=== PATIENT | female | born 1970 | race Native Hawaiian/Other Pacific Islander ===

== ENCOUNTER 2024-10-16 09:26 | Outpatient (AMB) | payer OTHER, SELFPAY ==
--- NOTE | 2024-10-16 09:34 | A.OFFVIS_ITS ---
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 Said she has right knee swelling since. Told her primary care doctor who referred patient to [facility]. Accompanied by: Self / Same As Patient Allergies clindamycin Allergy (Unknown, Verified 10/16/24 09:38) unknown lidocaine Allergy (Unknown, Verified 10/16/24 09:38) Blisters propylene glycol Allergy (Unknown, Verified 10/16/24 09:38) Blisters HPI HPI MARKETING PROGRAMS SPECIALIST Lower Extremity swelling: Details: Anusha, a pleasant 54-year-old female patient, is presenting today on a referral for right more than left swelling with feelings of hot liquid going down her leg. She also continues with numbness around her right knee area. Complaints include discomfort, swelling of lower extremities, and a feeling warm liquid going down her leg. It has been affecting their daily activities including walking, standing, and physical activity. It is noted more so in right leg. She has not gone back to [facility] for a follow up; her PCP sent her here on a referral. Patient states approximately 1-2 years ago she had vein stripping in bilateral lower extremities at [facility]. Patient denies any history of DVT/ PE. Patient denies any history of phlebitis. Trial of compression includes - she has not tried elevation or compression stockings yet They now present for vascular evaluation regarding their varicose veins. Review of Systems Const Reports as per HPI and Denies weakness ENT Reports Normal hearing present and Denies dizziness Card Reports as per HPI, Denies chest pain, Denies chest pain at rest, Denies chest pain with activity, Denies dyspnea and Denies dyspnea on exertion Resp Reports as per HPI, Denies cough, Denies dyspnea and Denies dyspnea on exertion GI Reports as per HPI, Denies abdominal pain, Denies nausea and Denies vomiting Musc Denies numbness Skin/Breast Reports as per HPI, Denies erythema and Denies wounds Neuro Reports Normal hearing present, Denies dizziness, Denies numbness, Denies Sensory deficit (Neuro) and Denies weakness Psych Reports no additional complaints Endo Reports no additional complaints Physical Exam Const General: healthy appearing and no acute distress Orientation/consciousness: patient oriented x3 HEENT Head: Yes normal to inspection Ears: hearing grossly normal bilaterally Mouth: Normal oral and palatal mucosa present Resp Effort & Inspection: normal respiratory effort and able to speak in complete sentences Auscultation: clear to auscultation bilaterally Cardio Jugular venous distension: no JVD Rate: regular rate Rhythm: regular rhythm Heart sounds: S1 normal heart sound present and S2 normal heart sound present Bruits: no abdominal aortic bruits, no carotid bruits, no femoral bruits and no renal bruits Peripheral pulses: Peripheral pulses 2+ throughout GI Inspection: Yes normal to inspection Palpation (GI): No Abdominal aortic bruit present Skin General skin exam: no rashes or lesions noted Wounds: no wounds Hair: normal Neuro General: patient oriented x3 Cranial nerves: Yes Normal hearing present Cognition (Neuro): normal cognition Gait exam (Neuro): Normal gait present Motor exam (neuro): 5/5 motor strength present throughout Sensory Exam: No Sensory deficit (Neuro) Extrem Other: Right lower extremity: Pain to palpation on the lateral aspect of the knee and just [id number]. No discoloration noted. Trace peripheral edema noted. Palpable DP pulses. Left lower extremity: Trace peripheral edema noted. CEAP: C - 3 E - primary A - superficial P - reflux General: Yes normal to inspection, Yes full ROM, Yes capillary refill normal and Yes normal gait Assessment & Plan Assessment & Plan (1) Varicose veins of right lower extremity with inflammation: Code(s): I83.11 - Varicose veins of right lower extremity with inflammation Category: Medical Plan: Anusha is presenting today on a referral for right greater than left lower extremity swelling with a feeling of warm liquid going down her right lower extremity from her knee to the lateral aspect of her calf. She states this has been going on since her procedures to have veins stripping done approximately 1- 2 years ago. In short, the patient has evidence of venous insufficiency. I have discussed the pathophysiology with the patient. In addition I have provided informational material regarding venous disease to the patient. We have discussed conservative measures including compression, elevation, and exercise. I have taken the liberty of ordering venous insufficiency testing with the patient. They will follow up with me after testing. The patient had an opportunity to ask questions regarding the treatment plan. All questions were answered. Imaging studies, laboratory studies and physical exam results were discussed and reviewed in detail. No major barriers to understanding were identified. The patient expressed understanding and agreement with the above treatment plan. The patient is aware they should contact our office by phone for worsening of the current condition or the appearance of new symptoms. Thank you for allowing me to participate in the vascular care of this patient. If you have any questions or concerns regarding the treatment for the above condition please do not hesitate to contact me. The office telephone contact is [phone]. This note is constructed using voice recognition software. While every effort has been made to ensure accuracy, communication equipment repairer errors may have been included. Thank you for allowing me to participate in the care of your patient. Yours sincerely, MARLEN Mcmanus Orders: Orders US venous duplex LE 1 Week I83.11 - Varicose veins of right lower extremity with inflammation Coding Level of Care Code New Pt Level 4 (77595) Diagnoses Varicose veins of right lower extremity with inflammation I83.11
== END 2024-10-16 09:59 | disposition home or self-care (01) ==
PROVIDERS: PCP Internal Medicine; Visit Provider Physician Assistant Surgical
DX: I83.11 Varicose veins of right lower extremity with inflammation (principal)
CPT/HCPCS: 99204

== ENCOUNTER → 2024-10-16 09:26 | Outpatient (BNVA) | payer OTHER, SELFPAY | PROVIDERS: PCP Internal Medicine; Visit Provider Physician Assistant Surgical ==

== ENCOUNTER 2024-11-22 13:04 | Outpatient (REF) | payer OTHER, SELFPAY ==
--- NOTE | ~2024-11-22 | US_ITS ---
EXAMINATION: US LOWER EXTREMITY VENOUS (REFLUX EXAM), BILATERAL CLINICAL INFORMATION: Varices. COMPARISON: None. TECHNIQUE: Color flow triplex imaging and compression Doppler was performed to evaluate both the deep and the superficial systems bilaterally. To evaluate the superficial system, the examination was performed in the upright position. Color-flow Doppler ultrasound and compression ultrasound were utilized. In addition, maneuvers were utilized to demonstrate reflux. FINDINGS: 1. DEEP VENOUS ULTRASOUND OF THE RIGHT LOWER EXTREMITY: Common Femoral Vein: Compressible, normal respiratory variation and augmented flow. Femoral Vein: Compressible, normal color flow and augmentation. Popliteal Vein: Compressible, normal augmentation. Deep Reflux: There is no evidence of reflux in the deep system in either the common femoral vein, superficial femoral or the popliteal vein. There is no evidence of a Li's cyst. 2. SUPERFICIAL ULTRASOUND WITH DOPPLER OF RIGHT LOWER EXTREMITY: GREAT SAPHENOUS VEIN: Saphenofemoral Junction: 0.4 cm; Reflux: 0 ms Proximal Thigh: Not seen. Mid Thigh: Not seen. Distal Thigh: Not seen. At Knee: 0.3 cm; Reflux: More than 2576 ms Proximal Calf: 0.3 cm; Reflux: More than 2840 ms Mid Calf: 0.2 cm; Reflux: 0 ms Distal Calf: 0.2 cm; Reflux: No more than 1816 ms DUPLICATED MEDIAL GREAT SAPHENOUS VEIN: Diameter: None imaged Reflux: NA DUPLICATED LATERAL GREAT SAPHENOUS VEIN: Diameter: 0.3 cm. Reflux: NA SMALL SAPHENOUS VEIN: Saphenopopliteal Junction: 0.2 cm; Reflux: 0 ms Proximal: 0.1 cm; Reflux: 0 ms Distal: 0.2 cm; Reflux: 0 ms VEIN OF GIACOMINI: Size: 0.2 cm. Reflux: NA PERFORATORS: Location: Small saphenous vein mid segment. Great saphenous vein mid segment and mid calf. Size: 0.2 cm. Reflux: NA VARICOSITIES: Location: Distal thigh. Size: 0.3 cm. Reflux: NA 3. DEEP VENOUS ULTRASOUND OF THE LEFT LOWER EXTREMITY: Common Femoral Vein: Compressible, normal respiratory variation and augmented flow. Femoral Vein: Compressible, normal color flow and augmentation. Popliteal Vein: Compressible, normal augmentation. Deep Reflux: There is no evidence of reflux in the deep system in either the common femoral vein, superficial femoral or the popliteal vein. There is no evidence of a Li's cyst. 4. SUPERFICIAL ULTRASOUND WITH DOPPLER OF LEFT LOWER EXTREMITY: GREAT SAPHENOUS VEIN: Saphenofemoral Junction: Not seen. Proximal Thigh: 0.3 cm; Reflux: No more than 3220 ms Mid Thigh: 0.3 cm; Reflux: No more than 2824 ms Distal Thigh: 0.2 cm; Reflux: 1536 ms At Knee: 0.2 cm; Reflux: 1940 ms Proximal Calf: 0.1 cm; Reflux: 0 ms Mid Calf: 0.1 cm; Reflux: 0 ms Distal Calf: 0.1 cm; Reflux: 0 ms DUPLICATED MEDIAL GREAT SAPHENOUS VEIN: Diameter: None imaged Reflux: NA DUPLICATED LATERAL GREAT SAPHENOUS VEIN: Diameter: 0.2 cm. Reflux: NA SMALL SAPHENOUS VEIN: Saphenopopliteal Junction: 0.1 cm; Reflux: 0 ms Proximal: 0.2 cm; Reflux: 0 ms Distal: 0.1 cm; Reflux: 0 ms VEIN OF GIACOMINI: Size: NA Reflux: NA PERFORATORS: Location: Mid thigh and proximal calf. Size: 0.2 cm. Reflux: NA VARICOSITIES: Location: Proximal thigh and calf and lateral mid thigh. Size: 0.3 cm. Reflux: No more than 2920 ms in the proximal calf and 936 ms in the proximal thigh and 964 ms in the mid thigh. US/US venous duplex LE BI IMPRESSION: Right: Venous insufficiency, great saphenous vein from the knee to the ankle. Varices and perforators without reflux. Left: Venous insufficiency, great saphenous vein from the proximal thigh to the knee. Varices with the reflux in the proximal and mid thigh and proximal calf. Electronically signed by: Jono Laguna MD 11/23/2024 10:38 AM EDT
== END 2024-11-22 13:05 | disposition home or self-care (01) ==
LOC: HO.US 13:04
PROVIDERS: PCP Internal Medicine; Visit Provider Physician Assistant Surgical
DX: I83.11 Varicose veins of right lower extremity with inflammation (principal)
CPT/HCPCS: 93970

== ENCOUNTER → 2024-11-22 13:05 | Outpatient (BNV) | payer OTHER, SELFPAY | PROVIDERS: PCP Internal Medicine; Visit Provider Radiology Diagnostic Radiology | DX: I86.8 Varicose veins of other specified sites (principal) | CPT/HCPCS: 93970 ==

== ENCOUNTER 2024-12-11 15:10 | Outpatient (AMB) | payer OTHER, SELFPAY ==
--- NOTE | 2024-12-11 15:16 | A.OFFVIS_ITS ---
Intake Visit Reasons: follow up s/p US 11/22/24 Intake Note: Follow up US. Patient has no complaints. Accompanied by: Self / Same As Patient Allergies clindamycin Allergy (Unknown, Verified 12/11/24 15:17) unknown lidocaine Allergy (Unknown, Verified 12/11/24 15:17) Blisters propylene glycol Allergy (Unknown, Verified 12/11/24 15:17) Blisters [facility] follow up s/p US 11/22/24: Details: The patient is a 54-year-old female presenting with peripheral venous insufficiency. Two years prior, she received bilateral treatment at [facility] for this condition, yet continues to experience numbness and swelling, primarily in the left leg. She describes sensations of internal fluid movement and visible vein distension, particularly pronounced in the thigh. She now presents for follow-up with venous insufficiency testing.. Review of Systems Const Reports as per HPI ENT Reports no additional complaints Card Denies chest pain, Denies chest pain at rest and Denies chest pain with activity Resp Denies chest congestion and Denies cough GI Reports no additional complaints Musc Details: pain over varicosities, aching of lower extremities, swelling, cramping, heaviness and tiredness, itching Denies abnormal gait Skin/Breast Reports pruritus and Denies wounds Neuro Reports no additional complaints and Denies abnormal gait Psych Denies no additional complaints Physical Exam Const General: cooperative, healthy appearing and comfortable Orientation/consciousness: oriented to person, oriented to place and oriented to time Neck Carotids: no bruits Chest Chest palpation & inspection: normal inspection of the chest and normal palpation of entire chest wall Resp Effort & Inspection: normal respiratory effort and able to speak in complete sentences Cardio Rate: regular rate Heart sounds: S1 normal heart sound present and S2 normal heart sound present Peripheral pulses: Peripheral pulses 2+ throughout GI Inspection: Yes normal to inspection Skin Other: +2 edema, large rope-like varicosities greater than 4 mm CEAP Classification C4 - skin color changes Ep - Etiology Primary As - superficial veins P - reflux General skin exam: dry skin Neuro General: oriented to person, oriented to place and oriented to time Extrem Right lower extremity: full ROM, normal capillary refill and edema Left lower extremity: full ROM, normal capillary refill and edema Psych Mental Status: mental status grossly normal Results Reviewed Results Reviewed: Brief summary of venous insufficiency testing is as follows: right great saphenous vein: Positive right calf right small saphenous vein: negative right accessory vein: none present left great saphenous vein: Positive left small saphenous vein: negative left accessory vein: none present Please note there is no evidence of any venous aneurysms or significant tortuosity Assessment & Plan Assessment & Plan (1) Varicose veins of left lower extremity with inflammation: Code(s): I83.12 - Varicose veins of left lower extremity with inflammation Category: Medical Plan: This patient has varicose veins with inflammation. They continue to be a source of discomfort for the patient. The patient has tried conservative treatment with compression, leg elevation and exercise program for over 3 months time. They have been compliant with all treatment. This has provided minimal relief for the patient. I do not anticipate this course of treatment will alter the underlying etiology. The patient has been scheduled for lower extremity venous treatment inclusive of --- left great saphenous vein Cyanoacralate ablation. Risks, benefits, and complications of this procedure has been discussed in detail with the patient including but not limited to bleeding, infection, and the development of a DVT. The patient has demonstrated a clear understanding and has consented. We will schedule the patient as soon as possible. Thank you for allowing us to participate in this patient's care. If there are any questions or concerns please do not hesitate to contact us. Coding Level of Care Code Est Pt Level 4 (93604) Complex EM visit Add On G2211 Diagnoses Varicose veins of left lower extremity with inflammation I83.12
== END 2024-12-11 15:38 | disposition home or self-care (01) ==
LOC: HO.HVS 15:11
PROVIDERS: PCP Internal Medicine; Visit Provider Surgery Vascular Surgery
DX: I83.12 Varicose veins of left lower extremity with inflammation (principal)
CPT/HCPCS: 99214

== ENCOUNTER 2024-12-28 09:11 | Outpatient (AMB) | payer OTHER, SELFPAY ==
--- NOTE | 2024-12-28 10:30 | A.OFFVIS_ITS ---
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 Novak Internal Communications Writer: MARLEN Mcmanus Estimated Blood Loss: min Specimen: none Duplex ultrasound was used to map out the insufficient saphenous vein, and access was determined and marked on the overlying skin. The depth and diameter of the vein(s) to be treated was documented. The patient was placed supine on the procedure table and the leg was prepped and draped using sterile technique. Ultasound guidance was again used to localize the access site. 1% lidocaine was injected as a local anesthetic in the subcutaneous tissues at the target location in the GSV in the lower leg. Using ultrasound guidance, access was gained at this location with the 19 gauge thin walled access needle and followed by introduction of a short guidewire, location confirmed with ultrasound. A small, 3 mm incision was made at the access site to allow for introduction and placement of the 7 Fr x7cm introducer/dilator. The dilator and guidewire were removed. The 0.035 guidewire from the VenaSeal kit was then introduced and positioned at the saphenofemoral junction using ultrasound guidance. The 80 cm 7 Fr introducer sheath/dilator was positioned 5cm from the saphenofemoral junction. The guidewire and dilator were removed, and the remaining sheath was flushed with sterile saline, with the syringe remaining in place prior to the next steps. The cyanoacrylate adhesive was precisely primed into the 5 F delivery catheter and this catheter/syringe combination was attached within the dispenser gun. This assembly was introduced through the 7F sheath and positioned 5 cm caudal of the saphenofemoral junction under ultrasound guidance. The steps from the IFU were followed for dispensing amounts, locations and compression times, 2 aliquots proximally with 3 minutes of compression, and 1 aliquot every 3 cm distally with 30 sec of compression along the course of the vessel. Following the last injection and compression sequence, the catheter and introducer sheath were pulled out from the access site. Hemostasis was achieved with manual compression and an adhesive bandage was applied to the incision. Ultrasound confirmed complete coaptation and closure of the treated segments of the GSV, and the absence of any DVT at the saphenofemoral junction. Treatment time was approximately 5 minutes and the vein length treated was 15 cm. The drapes were removed and the patient cleaned and prepared for discharge. Post op ultrasound check is scheduled for 48-72 hours and the patient was given written post-op instructions. 35579 - Endoven Ther Chem Adhes 1st All charges added?: Procedure code (CPT) selection complete Assessment & Plan Assessment & Plan (1) Varicose veins of left lower extremity with inflammation: Comment: 12/28/2024 - left great saphenous vein Cyanoacralate ablation Code(s): I83.12 - Varicose veins of left lower extremity with inflammation Category: Medical Plan: See op note Coding Level of Care Code Complex EM visit Add On G2211 Diagnoses Varicose veins of left lower extremity with inflammation I83.12 CPT Codes Details - Vascular 3: 19545 - Endoven Ther Chem Adhes 1st ([id number])
== END 2024-12-28 10:33 | disposition home or self-care (01) ==
LOC: HO.HVS 09:11
PROVIDERS: PCP Internal Medicine; Visit Provider Surgery Vascular Surgery
DX: I83.12 Varicose veins of left lower extremity with inflammation (principal)
CPT/HCPCS: 36482

== ENCOUNTER → 2024-12-28 09:11 | Outpatient (BNVA) | payer OTHER, SELFPAY | PROVIDERS: PCP Internal Medicine; Visit Provider Surgery Vascular Surgery | DX: I83.12 Varicose veins of left lower extremity with inflammation (principal) | CPT/HCPCS: 36482; J1200 ==

== ENCOUNTER 2025-01-10 15:07 | Outpatient (AMB) | payer OTHER, SELFPAY ==
--- NOTE | 2025-01-10 15:14 | MHC.OFFVIS ---
Intake Visit Reasons: 2 week follow up Left GSV Venaseal 12/28/2024 Intake Note: Patient presents for follow up left gsv rfa. Patient believes she may have an infection on one of her incisions as it is red. Has been putting neosporin on it. Patient states she feels sharp pains on her left leg. Accompanied by: Child Allergies clindamycin Allergy (Unknown, Verified 01/10/25 15:18) unknown lidocaine Allergy (Unknown, Verified 01/10/25 15:18) Blisters propylene glycol Allergy (Unknown, Verified 01/10/25 15:18) Blisters HPI HPI 2 week follow up Left GSV Venaseal 12/28/2024: Details: 54-year-old female presents for follow-up status post left great saphenous vein ablation. She reports she was doing fairly well after the procedure. Overall pain and discomfort have improved. She does have some mild swelling over the left lower extremity along with some prominent varicosities which are of concern to her. She does report some right lateral leg numbness from venous procedures done at an outside institution. She is now for routine postprocedure follow-up. Review of Systems Const Reports as per HPI ENT Reports no additional complaints Card Denies chest pain, Denies chest pain at rest and Denies chest pain with activity Resp Denies chest congestion and Denies cough GI Reports no additional complaints Musc Details: pain over varicosities, aching of lower extremities, swelling, cramping, heaviness and tiredness, itching Denies abnormal gait Skin/Breast Reports pruritus and Denies wounds Neuro Reports no additional complaints and Denies abnormal gait Psych Denies no additional complaints Physical Exam Const General: cooperative, healthy appearing and comfortable Orientation/consciousness: oriented to person, oriented to place and oriented to time Neck Carotids: no bruits Chest Chest palpation & inspection: normal inspection of the chest and normal palpation of entire chest wall Resp Effort & Inspection: normal respiratory effort and able to speak in complete sentences Cardio Rate: regular rate Heart sounds: S1 normal heart sound present and S2 normal heart sound present Peripheral pulses: Peripheral pulses 2+ throughout GI Inspection: Yes normal to inspection Skin Other: +2 edema, large rope-like varicosities greater than 4 mm CEAP Classification C4 - skin color changes Ep - Etiology Primary As - superficial veins P - reflux General skin exam: dry skin Neuro General: oriented to person, oriented to place and oriented to time Extrem Right lower extremity: full ROM, normal capillary refill and edema Left lower extremity: full ROM, normal capillary refill and edema Psych Mental Status: mental status grossly normal Assessment & Plan Assessment & Plan (1) Varicose veins of left lower extremity with inflammation: Comment: 12/28/2024 - left great saphenous vein Cyanoacralate ablation Code(s): I83.12 - Varicose veins of left lower extremity with inflammation Category: Medical Plan: In short patient has done well with her left great saphenous vein ablation. She does have some superficial varicosities throughout the calf. At the current time we would like to manage this conservatively. We did discuss compression elevation and exercise. We will see her back in approximately 3 months to see if she sees any significant improvement. If not at that time we may consider microphlebectomy. Thank you for allowing us to assist in her care. If there are any questions or concerns please do not hesitate to contact us. Coding Level of Care Code Est Pt Level 4 (60528) Diagnoses Varicose veins of left lower extremity with inflammation I83.12
== END 2025-01-10 15:43 | disposition home or self-care (01) ==
LOC: HO.HVS 15:08
PROVIDERS: PCP Internal Medicine; Visit Provider Surgery Vascular Surgery
DX: I83.12 Varicose veins of left lower extremity with inflammation (principal)
CPT/HCPCS: 99214

== ENCOUNTER → 2025-01-10 15:07 | Outpatient (BNVA) | payer OTHER, SELFPAY | PROVIDERS: PCP Internal Medicine; Visit Provider Surgery Vascular Surgery ==

== ENCOUNTER 2025-04-11 11:05 | Outpatient (AMB) | payer OTHER, SELFPAY ==
--- NOTE | 2025-04-11 11:08 | MHC.OFFVIS ---
Intake Visit Reasons: 3 mo leg check Intake Note: 3 mo leg check s/p Left GSV Venaseal 12/28/24. Pt states she still has sebastian epain over treated area to touch. Also states she has pain over the VV on her calf and behind the knee. Brand Ambassador Promotional Model Required: No Accompanied by: Self / Same As Patient Allergies clindamycin Allergy (Unknown, Verified 04/11/25 11:12) unknown lidocaine Allergy (Unknown, Verified 04/11/25 11:12) Blisters propylene glycol Allergy (Unknown, Verified 04/11/25 11:12) Blisters HPI HPI 3 mo leg check: Details: Pleasant 54-year-old female presents for follow-up regarding left lower extremity varicose veins. She previously had a left great saphenous vein ablation on 12/28/2024. She has significant residual varicosities which have been a source of pain and discomfort for her. She has had a trial of conservative management including compression elevation and exercise which has provided minimal relief. She now presents for follow-up. Review of Systems Const Reports as per HPI ENT Reports no additional complaints Card Denies chest pain, Denies chest pain at rest and Denies chest pain with activity Resp Denies chest congestion and Denies cough GI Reports no additional complaints Musc Details: pain over varicosities, aching of lower extremities, swelling, cramping, heaviness and tiredness, itching Denies abnormal gait Skin/Breast Reports pruritus and Denies wounds Neuro Reports no additional complaints and Denies abnormal gait Psych Denies no additional complaints Physical Exam Const General: cooperative, healthy appearing and comfortable Orientation/consciousness: oriented to person, oriented to place and oriented to time Neck Carotids: no bruits Chest Chest palpation & inspection: normal inspection of the chest and normal palpation of entire chest wall Resp Effort & Inspection: normal respiratory effort and able to speak in complete sentences Cardio Rate: regular rate Heart sounds: S1 normal heart sound present and S2 normal heart sound present Peripheral pulses: Peripheral pulses 2+ throughout GI Inspection: Yes normal to inspection Skin Other: +2 edema, large rope-like varicosities greater than 4 mm left calf and thigh CEAP Classification C4 - skin color changes Ep - Etiology Primary As - superficial veins P - reflux General skin exam: dry skin Neuro General: oriented to person, oriented to place and oriented to time Extrem Right lower extremity: full ROM, normal capillary refill and edema Left lower extremity: full ROM, normal capillary refill and edema Psych Mental Status: mental status grossly normal Assessment & Plan Assessment & Plan (1) Varicose veins of left lower extremity with inflammation: Comment: 12/28/2024 - left great saphenous vein Cyanoacralate ablation Code(s): I83.12 - Varicose veins of left lower extremity with inflammation Category: Medical Plan: This patient has varicose veins with inflammation. They continue to be a source of discomfort for the patient. The patient has tried conservative treatment with compression, leg elevation and exercise program for over 3 months time. They have been compliant with all treatment. This has provided minimal relief for the patient. I do not anticipate this course of treatment will alter the underlying etiology. The patient has been scheduled for lower extremity venous treatment inclusive of --- left leg microphlebectomy. Risks, benefits, and complications of this procedure has been discussed in detail with the patient including but not limited to bleeding, infection, and the development of a DVT. The patient has demonstrated a clear understanding and has consented. We will schedule the patient as soon as possible. Thank you for allowing us to participate in this patient's care. If there are any questions or concerns please do not hesitate to contact us. Coding Level of Care Code Est Pt Level 4 (13080) Diagnoses Varicose veins of left lower extremity with inflammation I83.12
--- OUTSIDE RECORDS SUMMARY | 2025-04-11 12:43 | XMS_ITS | Continuity of Care Document ---
Author Organization [facility] Address [address] [place] [address] Phone [phone] Care Team Providers Care Multigraph Operator Name Role Phone Yoshi Kerr Care Team Information Receiv er [phone] Social History Type Date Description Comments Sex Female Sex Unknown Medical Devices Description No Information Available Encounters Description No Information Available Assessments Description No Information Available Plan of Treatment Future Appointment(s):* 04/26/2025 1:30 pm - Bailey Mitchell NP at Main Office Functional Status Description No Information Available Mental Status Description No Information Available Referrals Description No Information Available
== END 2025-04-11 11:27 | disposition home or self-care (01) ==
LOC: HO.HVS 11:06
PROVIDERS: PCP Internal Medicine; Visit Provider Surgery Vascular Surgery
DX: I83.12 Varicose veins of left lower extremity with inflammation (principal)
CPT/HCPCS: 99214

== ENCOUNTER 2025-05-03 08:30 | Outpatient (AMB) | payer OTHER, SELFPAY ==
--- OUTSIDE RECORDS SUMMARY | 2025-04-30 10:45 | XMS_ITS ---
Author Organization [facility] Address [address] [address] Care Team Providers Care Rn Acls Name Role Phone Cirilo, Yoshi Primary Care Provider Unavailab DANNY Tellez Unavailable [phone] Allergies Allergen (clinical drug ingredient) Drug/Non Drug [...] Active Encounters Encounter Location Date Provider Diagnosis [facility] [address] [address] 04/30/2025 DANNY SANDRA Plan Of Treatment Next Appt Details Provider Name:DANNY SANDRA, 07/08/2025 02:30:00 PM, [address] [address], [place], [address], Progress Notes * Anusha ROWLEYDOB:1970 ( 55 yo F)Acc No.[id number]:04/30/2025 Consult note Patient: Anusha AZUL Provider: Burt Byrnes DPM :1970 A ge:55 Y S ex:Female Date:04/30/2025 Phone: Address:[address] [place] [address] , [place], [id number] Pcp:Yoshi Kerr Subjective: * Chief Complaints: * [...] Electronic signature of LUIS SANDRA D.P.M. on 05/03/2025 at 09:00 AM EDT Sign off status: Pending * Provider: Burt Byrnes DPM Date: 04/30/2025 Generated for Alise acharya/Betsy/Becca on: 05/03/2025 09:00 AM EDT
--- OUTSIDE RECORDS SUMMARY | 2025-05-01 06:00 | XMS_ITS ---
Author Organization [facility] Address [address] [address] Care Team Providers Care Injection Molder Name Role Phone Yoshi Kerr Primary Care Provider Unavailab DANNY Tellez Unavailable [phone] Allergies Allergen (clinical drug ingredient) Drug/Non Drug Allergy documented on EMR Reaction Allergy Type Onset Date Status clindamycin Clindamycin HCl Unknown Drug Allergy Active lidocaine Lidocaine Unknown Drug Allergy Active propylene glycol Propylene Glycol Unknown Drug Allergy Active REASON FOR VISIT right foot pain Medications Medication SIG (Take, Route, Frequency, Duration) Notes Start Date End Date Status EpiPen 2-Sony 0.3 MG/0.3ML as directed Injection Not-Taking metFORMIN HCl 500 MG 1 tablet with a sher l Orally Once a day Active Albuterol Sulfate HFA 6.7GM Active Clotrimazole-Betamet hasone 1-0.05 % 1 application Externally Twice a day Active Rosuvastatin Calcium 10 MG 1 tablet Orally Once a day Active Ondansetron 4 MG 1 tablet on the tongue and allow to dissolve Orally Once a day Not-Taking Diclofenac Sodium 1 % 2 grams to right foot Externally twice a day; Duration: 30 days patient was advised that she can get over the counter. May need help finding 05/01/2025 Active Ozempic (1 MG/DOSE) 4 MG/3ML as directed Subcutaneous Active Vital Signs Temperature 96.8 degrees Fahrenheit 05/01/20 25 Heart Rate 86 /min 05/01/2025 Respiratory Rate 16 /min 05/01/2025 Height 5ft 2in in 05/01/2025 Weight 131.6 lbs 05/01/2025 BMI 24.07 kg/m2 05/01/2025 Encounters Encounter Location Date Provider Diagnosis [facility] [address] [address] 05/01/2025 DANNY SANDRA Metatarsalgia, right foot M77.41 ; Acquired hallux limitus of right foot M20.5X1 and DM type 2 with diabetic peripheral neuropathy E11.42 Assessments Encounter Date Diagnosis (ICD Code) Assessment Notes Treatment Notes Treatment Clinical Notes Section Notes 05/01/2025 Metatarsalgia, right foot (ICD-10 - M77.41) Patient examined and evaluated. Past medical history reviewed. She has chronic metatarsalgia on the right side. 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 There is likely correlation with her occupation and increase forefoot pressure with driving. No evidence of bunion deformity, but there is mild hallux limitus. I discussed that she has some inflammation of the plantar tissues due to the increase pressure to these areas. The fascia has some mild thickening distally and there is likely some nerve irritation as well. She would benefit from custom orthotics that would last longer for her. Will set this up today. I also discussed using topical Voltaren to the area twice daily for pain control and also icing. We discussed steroid injections, but advised that this will elevate her blood sugars transiently and is more invasive. She wished to proceed with the orthotics and the voltaren. She wished for a Rx for the voltaren, I did advise that she will likely need to get this OTC. I will see her back in 2 months or sooner if needed. 05/01/2025 Acquired hallux limitus of right foot (ICD-10 - M20.5X1) 05/01/2025 DM type 2 with diabetic peripheral neuropathy (ICD-10 - E11.42) Plan Of Treatment Medication Medication Name Sig Start Date Stop Date Notes Diclofenac Sodium 1 % 2 grams to right f oot Externally twice a day; Duration: 30 days 05/01/2025 patient was advised that she can get over the counter. May need help finding Treatment Notes Assessment Notes Metatarsalgia, right foot Patient examin ed and evaluated. Past medical history reviewed. She has chronic metatarsalgia on the right side. 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 There is likely correlation with her occupation and increase forefoot pressure with driving. No evidence of bunion deformity, but there is mild hallux limitus. I discussed that she has some inflammation of the plantar tissues due to the increase pressure to these areas. The fascia has some mild thickening distally and there is likely some nerve irritation as well. She would benefit from custom orthotics that would last longer for her. Will set this up today. I also discussed using topical Voltaren to the area twice daily for pain control and also icing. We discussed steroid injections, but advised that this will elevate her blood sugars transiently and is more invasive. She wished to proceed with the orthotics and the voltaren. She wished for a Rx for the voltaren, I did advise that she will likely need to get this OTC. I will see her back in 2 months or sooner if needed. Next Appt Details Follow Up: 2 Months, Reason: Provider Name:DANNY SANDRA, 07/08/2025 02:30:00 PM, [address], [address], Progress Notes * Anusha ROWLEYDOB:1970 ( 55 yo F)Acc No.[id number]:05/01/2025 Consult note Patient: Anusha AZUL Provider: Burt Byrnes DPM :1970 A ge:55 Y S ex:Female Date:05/01/2025 Phone: Address:[address] [place] [id number] Pcp:Yoshi Kerr Subjective: * Chief Complaints: * R ight foot pain * HPI: F oot & Ankle: Ms. Rowley is a pleasant 55 year old female who presents for a consultation. She has been having right foot pain for the last 10 years. The pain is in the ball of the foot. It bothers her with any direct pressure to this area. No pain at rest. She has never had any swelling or discoloration associated with the pain. She has been driving [employer] for the last 17 years. She describes the pain as sharp and burning. Occasional pain in the right 2nd and 3rd toes. She denies any weakness. She states she saw another specialist in the past who advised she would need bunion surgery and gave her an insert. She states the insert helped, but then flattened out. She did not go back. She has not done anything else on her own for it. She is a type 2 diabetic with last HgbaA1 of 7.6. * ROS: G eneral/Constitutional: Denies C hills. D enies F atigue. D enies F ever. D enies H eadache. A llergy/Immunology: Denies H dominic. D enies I tching. D enies R tamir. E ndocrine: Denies E xcessive sweating. D enies E xcessive thirst. D enies F requent urination. R espiratory: Denies C ough. D enies S hortness of breath, d enies. D enies W heezing. C ardiovascular: Denies C hest pain. D enies C laudication. D enies C yanosis. G astrointestinal: Denies A bdominal pain. D enies C onstipation. D enies D iarrhea. H ematology: Denies B leeding problems, d enies. D enies E asy bruising, d enies. D enies S wollen glands. M usculoskeletal: Patient complaining of p ain ball of right foot. D enies L eg cramps. D enies S ciatica. D enies S wollen joints. P eripheral Vascular: Denies B lanching of skin. B lood clots in legs D enies. D enies C old extremities. S kin: Denies M asses. D enies N ail changes. D enies?Skin lesion(s). N eurologic: Denies P aralysis. D enies T ingling/Numbness. D enies T remor. P sychiatric: Denies A uditory/visual hallucinations. D enies D elusions. D enies S uicidal thoughts. * Medical History: * Surgical History: C olonoscopy 2018Mammogram 01/18/2018Venous ligation -Bilateral * Hospitalization/Major Diagno stic Procedure: v aginal delivery (girl) 1985vaginal delivery (boy) 1987vaginal delivery (girl) 1990vaginal delivery (boy) 1992vaginal delivery (boy) 1999 * Family History: D aughter(s): 2 daughters- eczema. S on(s): 3 sons- asthma2 sons- heart murmur. M other: type II diabetes, hyperlipidemia, hypertension, heart murmur, arthritis, thyroid disease, Lupus. Maternal Grand Father: , diabetes. M aternal uncle: stomach cancer. M aternal aunt: breast cancer. S iblings: brother- diabetes. 3 son(s) , 2 daughter(s) . . * Social History: T obacco: no Alcohol: no Drives [employer]. * Medications: T akingRosuvastatin Calcium 10 MG Tablet 1 tablet Orally Once a day Ozempic (1 MG/DOSE) 4 MG/3ML Solution Pen-injector as directed Subcutaneous metFORMIN HCl 500 MG Tablet 1 tablet with a meal Orally Once a day Clotrimazole-Betamethasone 1-0.05 % Lotion 1 application Externally Twice a day Albuterol Sulfate HFA , Notes to Pharmacist: 6.7GMTaking Rosuvastatin Calcium 10 MG Tablet 1 tablet Orally Once a day Taking Ozempic (1 MG/DOSE) 4 MG/3ML Solution Pen-injector as directed Subcutaneous Taking metFORMIN HCl 500 MG Tablet 1 tablet with a meal Orally Once a day Taking Clotrimazole-Betamethasone 1-0.05 % Lotion 1 application Externally Twice a day Taking Albuterol Sulfate HFA , Notes to Pharmacist: 6.7GMNot-TakingOndansetron 4 MG Tablet Disintegrating 1 tablet on the tongue and allow to dissolve Orally Once a day EpiPen 2-Sony 0.3 MG/0.3ML Solution Auto-injector as directed Injection Medication List reviewed and reconciled with the patientNot-Taking Ondansetron 4 MG Tablet Disintegrating 1 tablet on the tongue and allow to dissolve Orally Once a day Not-Taking EpiPen 2-Sony 0.3 MG/0.3ML Solution Auto-injector as directed Injection Medication List reviewed and reconciled with the patient * Allergies: C lindamycin HClLidocainePropylene Glycolno[Allergies Verified] Objective: * Vitals: W t:131.6lbs, Ht: 5ft 2in, BMI:24.07Index, HR:86/min, Temp:96.8F, RR:16/min, Ht- cm: 157.48, Wt-k.69 kg. * Examination: G eneral Examination: T his is a middle aged female. Alert and oriented today and in no acute distress. Patient comes in ambulating in sneakers without using any assistive devices. Breathing is regular and unlabored while sitting. Affect is pleasant and cooperative. No unusual anxiety or depression noted. Hearing intact to spoken word. No evidence of visual impairment that would impact self care or ambulation. Patient has palpable dorsalis pedis and posterior tibial pulse bilaterally. No varicosities visualized. Capillary refill is less than 3 seconds to all digits bilaterally. Light touch sensation is symmetrical to all lower extremity dermatomes. Babinski is downgoing. Skin has normal turgor and texture. There are no open wounds, rashes, or lesions noted. No evidence of a right hallux valgus deformity. There is mild right hallux limitus with elevation of the first ray. There is tenderness around the plantar right 2nd interspace and just inferior to the right sesamoids. No edema or discoloration. There is mild thickening of the right plantar fascia at the insertion to the first metatarsal. No deformities to the lesser toes on the right. Negative tinel with percussion in the right tarsal tunnel. Gastrocnemius equinus on the right. Subtalar and ankle joint range of motion are unrestricted. 5/5 strength for anterior, posterior, and lateral lower extremity muscle groups on the left and right. Therapeutic Interventions: Assessment: * Assessment: 1. M etatarsalgia, right foot - M77.41 (Primary) 2 . A cquired hallux limitus of right foot - M20.5X1 3 . D M type 2 with diabetic peripheral neuropathy - E11.42 Plan: * Treatment: * Procedure Codes: * Follow Up: 2 Months * Billing Information: * Visit Code: 75395 Office Visit, New Pt., Level 3. * Procedure Codes: * Sign off status: Completed true * Provider: Burt Byrnes DPM Date: 0 05/01/2025 Generated for Alise acharya/Betsy/Kaylynitting on: 0 05/03/2025 09:00 AM EDT History and Physical Notes * Examination Category Sub-Category Detail Notes Category Not es General Examination This is a middle aged female. Alert and oriented today and in no acute distress. Patient comes in ambulating in sneakers without using any assistive devices. Breathing is regular and unlabored while sitting. Affect is pleasant and cooperative. No unusual anxiety or depression noted. Hearing intact to spoken word. No evidence of visual impairment that would impact self care or ambulation. Patient has palpable dorsalis pedis and posterior tibial pulse bilaterally. No varicosities visualized. Capillary refill is less than 3 seconds to all digits bilaterally. Light touch sensation is symmetrical to all lower extremity dermatomes. Babinski is downgoing. Skin has normal turgor and texture. There are no open wounds, rashes, or lesions noted. No evidence of a right hallux valgus deformity. There is mild right hallux limitus with elevation of the first ray. There is tenderness around the plantar right 2nd interspace and just inferior to the right sesamoids. No edema or discoloration. There is mild thickening of the right plantar fascia at the insertion to the first metatarsal. No deformities to the lesser toes on the right. Negative tinel with percussion in the right tarsal tunnel. Gastrocnemius equinus on the right. Subtalar and ankle joint range of motion are unrestricted. 5/5 strength for anterior, posterior, and lateral lower extremity muscle groups on the left and right.
--- NOTE | 2025-05-03 08:43 | A.OFFVIS_ITS ---
Intake Visit Reasons: Left Micro Allergies clindamycin Allergy (Unknown, Verified 04/11/25 11:12) unknown lidocaine Allergy (Unknown, Verified 04/11/25 11:12) Blisters propylene glycol Allergy (Unknown, Verified 04/11/25 11:12) Blisters Office Procedures Vascular Office Procedure Details Details: Diagnosis: Left Leg varicose veins with inflammation Procedure: Left leg Microphlebectomy Anesthesia: Local Infiltration 10 mL of 1% diphenhydramine Varicose veins were marked in the standing position on the left leg and the patient was then placed in the supine position. The left lower extremity was p repared and draped to allow knee flexion in the sterile field. The patient had large superficial varicose veins with significant symptoms of pain. It was therefore determined to perform microphlebectomies of the clusters of varicose veins. The patient had bulging varicose veins which were previously marked in the standing position. A small stab incision was made longitudinally directly overlying the varicose vein in the calf and the varicose vein was grasped with a hemostat aided by a vein hook. It was then dissected as far proximally and distally as possible and avulsed. A total of 11 stab incisions were made and the procedure of stab phlebectomies was repeated 11 times. Hemostasis was checked and stab incision sites were closed with steri-strips and sterile dressing was given with gauze and krilex wrap followed by an citlaly bandage. There were no complications and blood loss was minimal. Post-Op instructions were given and a follow-up appointment was recommended. [id number] - Phleb Veins, Extrem - up to 20 All charges added?: Procedure code (CPT) selection complete Assessment & Plan Assessment & Plan (1) Varicose veins of left lower extremity with inflammation: Comment: 12/28/2024 - left great saphenous vein Cyanoacralate ablation 05/03/2025 - left leg microphlebectomy Code(s): I83.12 - Varicose veins of left lower extremity with inflammation Category: Medical Plan: See op note Coding Level of Care Code Procedure Only Diagnoses Varicose veins of left lower extremity with inflammation I83.12 CPT Codes Details - Vascular 5: 87318 - Phleb Veins, Extrem - up to 20 ([id number])
--- OUTSIDE RECORDS SUMMARY | 2025-05-03 09:00 | XMS_ITS | Continuity of Care Document ---
Author Organization [facility] Address [address] [place] [address] Phone [phone] Care Team Providers Care Cattle Dipper Name Role Phone Yoshi Kerr Care Team Information Receiv er [phone] Social History Type Date Description Comments Sex Female Sex Unknown Medical Devices Description No Information Available Encounters Description No Information Available Assessments Description No Information Available Plan of Treatment No Information Available Functional Status Description No Information Available Mental Status Description No Information Available Referrals Description No Information Available
--- OUTSIDE RECORDS SUMMARY | 2025-05-03 09:00 | XMS_ITS | Patient Health Record ---
Author Organization [facility] Address [address] [address] Care Team Providers Care Plasterer Stucco Name Role Phone Yoshi Kerr Primary Care Provider Unavailab latricia CAMPUZANOEY DANNY Unavailable [phone] Allergies Allergen (clinical drug ingredient) Drug/Non Drug Allergy documented on EMR Reaction Allergy Type Onset Date Status clindamycin Clindamycin HCl Unknown Drug Allergy Active lidocaine Lidocaine Unknown Drug Allergy Active propylene glycol Propylene Glycol Unknown Drug Allergy Active Reason For Referral No Information Medications Medication SIG (Take, Route, Frequency, Duration) [...] MG/DOSE) 4 MG/3ML as directed Subcutaneous Active EpiPen 2-Sony 0.3 MG/0.3ML as directed Injection Not-Taking metFORMIN HCl 500 MG 1 tablet with a sher l Orally Once a day Active Albuterol Sulfate HFA 6.7GM Active Clotrimazole-Betamet hasone 1-0.05 % 1 application Externally Twice a day Active Rosuvastatin Calcium 10 MG 1 tablet Orally Once a day Active Vital Signs Heart Rate 86 /min 05/01/2025 Temperature 96.8 degrees Fahrenheit 05/01/2025 Respiratory Rate 16 /min 05/01/2025 Height 5ft 2in in 05/01/2025 Weight 131.6 lbs 05/01/2025 BMI 24.07 kg/m2 05/01/2025 Encounters Encounter Location Date Provider Diagnosis [facility] [address] [address] 05/01/2025 DANNY SANDRA Metatarsalgia, right foot M77.41 ; Acquired hallux limitus of right foot M20.5X1 and 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 Past medical history reviewed. She has chronic metatarsalgia on the right side. 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 [...] neuropathy (ICD-10 - E11.42) Plan Of Treatment Next Appt Details Provider Name:DANNY SANDRA, 07/08/2025 02:30:00 PM, [address] , [place] [address], [place], [address], Insurance Providers Payer Name Payer Address Payer Phone Subscriber Number Group Number Insured Name Patient Relationship to Insured Coverage Start Date Coverage End Date [facility] [address] [place] [id number] Anusha Guzman Self - patient is the insured Medical (General) History Medical History History ICD Code Allergic rhinitis Colon polyps Diabetes Mellitus type 2, last HgbA1c 7. 6 Hyperlipidemia Obstructive sleep apnea + COVID 2020 COVID vaccinated X 2 Surgical History Surgery Date(Month/Year) Colonoscopy 2018 Mammogram 01/18/2018 Venous ligation -Bilateral Hospitalization History Reason Date(Month/Year) vaginal delivery (boy) 1999 vaginal delivery (boy) 1992 vaginal delivery (girl) 1990 vaginal delivery (boy) 1987 vaginal delivery (girl) 1985
== END 2025-05-03 10:24 | disposition home or self-care (01) ==
LOC: HO.HVS 08:30
PROVIDERS: PCP Internal Medicine; Visit Provider Surgery Vascular Surgery
DX: I83.12 Varicose veins of left lower extremity with inflammation (principal)
CPT/HCPCS: 37765

== ENCOUNTER → 2025-05-03 08:30 | Outpatient (BNVA) | payer OTHER, SELFPAY | PROVIDERS: PCP Internal Medicine; Visit Provider Surgery Vascular Surgery | DX: I83.12 Varicose veins of left lower extremity with inflammation (principal) | CPT/HCPCS: 37765; J1200 ==

== ENCOUNTER 2025-05-16 14:59 | Outpatient (AMB) | payer OTHER, SELFPAY ==
--- OUTSIDE RECORDS SUMMARY | 2025-04-30 10:45 | XMS_ITS ---
Author Organization [facility] Address [address] [address] Care Team Providers Care Rail Car Unloader Name Role Phone Cirilo, Yoshi Primary Care Provider Unavailab DANNY Tellez Unavailable [phone] Allergies Allergen (clinical drug ingredient) Drug/Non Drug Allergy documented on EMR Reaction Allergy Type Onset Date Status clindamycin Clindamycin HCl Unknown Drug Allergy Active lidocaine Lidocaine Unknown Drug Allergy Active propylene glycol Propylene Glycol Unknown Drug Allergy Active metformin metFORMIN Unknown Drug Allergy Active REASON FOR VISIT right foot pain.... left voicemail on 04/25/2025 to reschedule appt Medications Medication SIG (Take, Route, Frequency, Duration) Notes Start Date End Date Status Ondansetron 4 MG 1 tablet on the tong ue and allow to dissolve Orally Once a day Active metFORMIN HCl 500 MG 1 tablet with a sher l Orally Once a day Active Ozempic (1 MG/DOSE) 4 MG/3ML as directed Subcutaneous Act crow Rosuvastatin Calcium 10 MG 1 tablet Orally Once a day Active Albuterol Sulfate HFA 6.7GM Active EpiPen 2-Sony 0.3 MG/0.3ML as directed Injection Active Clotrimazole-Betamethasone 1-0.05 % 1 application Externally Twice a day Active Encounters Encounter Location Date Provider Diagnosis [facility] [address] [address] 04/30/2025 DANNY SANDAR Plan Of Treatment Next Appt Details Provider Name:DANNY SANDRA, 07/08/2025 02:30:00 PM, [address] [address], [place], [address], Progress Notes * Anusha ROWLEYDOB:1970 ( 55 yo F)Acc No.[id number]:04/30/2025 Consult note Patient: Anusha AZUL Provider: Burt Byrnes DPM :1970 A ge:55 Y S ex:Female Date:04/30/2025 Phone: Address:[address] [place] [address] , [place], [id number] Pcp:Yoshi Kerr Subjective: * Chief Complaints: * 1 . Right foot pain.... left voicemail on 04/25/2025 to reschedule appt. * Medical History: A llergic rhinitis, Colon polyps, DM2, Hyperlipidemia, Hypertriglyceridemia, Obstructive sleep apnea. * Surgical History: C olonoscopy 2017, Mammogram 01/18/2018, Venous ligation -Bilateral . * Family History: M other: type II diabetes, hyperlipidemia. Aunt: Malignant Breast Neoplasm Uncle: Malignant Stomach Neoplasm. * Social History: A lcohol: Some days Tobacco: Never. * Medications: T aking Rosuvastatin Calcium 10 MG Tablet 1 tablet Orally Once a day , Taking Ozempic (1 MG/DOSE) 4 MG/3ML Solution Pen-injector as directed Subcutaneous , Taking Ondansetron 4 MG Tablet Disintegrating 1 tablet on the tongue and allow to dissolve Orally Once a day , Taking metFORMIN HCl 500 MG Tablet 1 tablet with a meal Orally Once a day , Taking EpiPen 2-Sony 0.3 MG/0.3ML Solution Auto-injector as directed Injection , Taking Clotrimazole-Betamethasone 1-0.05 % Lotion 1 application Externally Twice a day , Taking Albuterol Sulfate HFA , Notes to Pharmacist: 6.7GM * Allergies: C lindamycin HCl, Lidocaine, metFORMIN, Propylene Glycol. Objective: * Vitals: Therapeutic Interventions: Assessment: Plan: * Treatment: * Billing Information: * Visit Code: * Procedure Codes: * Electronic signature of LUIS SANDRA D.P.M. on 05/16/2025 at 07:19 PM EDT Sign off status: Pending * Provider: Burt Byrnes DPM Date: 04/30/2025 Generated for Alise acharya/Betsy/Becca on: 05/16/2025 07:19 PM EDT
--- NOTE | 2025-05-16 15:03 | A.OFFVIS_ITS ---
Intake Visit Reasons: 2 week follow up Left Micro 05/03/25 Intake Note: Patient presents for 2 week follow up left micro. Patient states her leg is still sore but manageable. Accompanied by: Self / Same As Patient Allergies clindamycin Allergy (Unknown, Verified 05/16/25 15:05) unknown lidocaine Allergy (Unknown, Verified 05/16/25 15:05) Blisters propylene glycol Allergy (Unknown, Verified 05/16/25 15:05) Blisters HPI HPI 2 week follow up Left Micro 05/03/25: Details: The patient is a 55-year-old female presenting for follow-up after left leg microphlebectomy. The procedure was performed on May 03, 2015, and the patient reports that her legs feel generally better, although she experiences occasional discomfort, which she attributes to weather changes. She notes persistent bruising and tenderness at the surgical site, with some swelling still present. The patient has been wearing compression stockings as advised, which she reports as beneficial. She also mentions the presence of spider veins, which are not severe, and expresses satisfaction with the overall appearance of her legs post- procedure. Review of Systems Const All systems reviewed & are unremarkable except as noted in HPI and below Reports no additional complaints ENT Reports Normal hearing present Card Denies chest pain, Denies chest pain at rest, Denies chest pain with activity and Denies pedal edema Resp Denies cough GI Denies abdominal pain Musc Denies abnormal gait, Denies muscle cramps and Denies radiating pain into limb Skin/Breast Denies skin ulcer and Denies wounds Neuro Reports Normal hearing present and Denies abnormal gait Psych Reports no additional complaints Physical Exam Const General: cooperative, healthy appearing and comfortable Orientation/consciousness: oriented to person, oriented to place and oriented to time HEENT Head: Yes normal to inspection Neck Neck: Yes normal visual inspection Carotids: no bruits Chest Chest palpation & inspection: normal inspection of the chest Resp Effort & Inspection: normal respiratory effort and able to speak in complete sentences Auscultation: clear to auscultation bilaterally, no crackles, no rales, no rhonchi and no wheezes Cardio Rate: regular rate Rhythm: regular rhythm Heart sounds: S1 normal heart sound present and S2 normal heart sound present Bruits: no carotid bruits Peripheral pulses: Peripheral pulses 2+ throughout GI Inspection: Yes normal to inspection Skin Wounds: no wounds Hair: normal Neuro General: oriented to person, oriented to place and oriented to time Cranial nerves: Yes CN's II-XII intact bilaterally and Yes Normal hearing present Cognition (Neuro): normal cognition Motor exam (neuro): 5/5 motor strength present throughout Extrem Other: venous exam: No significant superficial varicosities or spider telangiectasias, minimal edema General: No clubbing, No cyanosis and No edema Psych Appearance: grossly normal Mental Status: mental status grossly normal Speech and movement: Normal speech and movement present Assessment & Plan Assessment & Plan (1) Varicose veins of left lower extremity with inflammation: Comment: 12/28/2024 - left great saphenous vein Cyanoacralate ablation 05/03/2025 - left leg microphlebectomy Code(s): I83.12 - Varicose veins of left lower extremity with inflammation Category: Medical Plan: The patient has done extremely well with all venous treatments. Patient's may often experience postprocedure phlebitic episodes and I have discussed with the patient use of warm compresses and NSAIDS if tolerated for pain discomfort. In addition, I have discussed continued conservative measures including use of compression, leg elevation, and exercise. The patient was also given an information sheet regarding appropriate use of compression stockings and future purchases. Thank you for allowing us to care for your patient with venous disease. Plan Patient was informed and verbally consented to the use of an ambient scribe for clinic note documentation during this visit. Scribe Plan - Not visible on output: - Continue wearing compression stockings as advised to help reduce swelling and bruising. - Monitor the surgical site for any changes in tenderness or swelling and report any significant changes. - Observe spider veins and report any significant changes. Coding Level of Care Code Est Pt Level 4 (44138) Diagnoses Varicose veins of left lower extremity with inflammation I83.12
--- OUTSIDE RECORDS SUMMARY | 2025-05-16 19:19 | XMS_ITS | Patient Health Record ---
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 Past medical history reviewed. She has chronic metatarsalgia on the right side. 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
== END 2025-05-16 15:14 | disposition home or self-care (01) ==
LOC: HO.HVS 14:59
PROVIDERS: PCP Internal Medicine; Visit Provider Surgery Vascular Surgery
DX: I83.12 Varicose veins of left lower extremity with inflammation (principal)
CPT/HCPCS: 99214